=== PATIENT | male | born 1985 | race Hispanic/Latino ===

== ENCOUNTER 2017-02-17 22:29 | Emergency (ER) | payer OTHER ==
[~2017-02-17] VITALS: Ht 177.8 cm; Wt 99.8 kg
[~2017-02-17 22:29] MED LIST: AMOXICILLIN500 MG PO; AUGMENTIN 875 M1 TAB PO; AUGMENTIN 875875 MG PO; CYCLOBENZAPRINE10 M1 PO; IBU800 MG PO; IBUPROFEN800 M1 PO; PERCOCET 325 MG1 TA2 PO
[2017-02-17 23:00] LABS: ABSOLUTE BASOPHIL COUNT 0 /CUMM (0.0-0.2); ABSOLUTE EOSINOPHIL COUNT 0.1 /CUMM (0.0-0.7); ABSOLUTE GRANULOCYTE CT 3.5 /CUMM (1.4-6.5); ABSOLUTE LYMPH COUNT 1.7 /CUMM (1.2-3.4); ABSOLUTE MONOCYTE COUNT 0.6 /CUMM (0.10-0.60); BASOPHIL % 0.4 % (0.0-2.0); EOSINOPHIL % 1.4 % (0-5); GRANULOCYTE % 59.5 % (42.2-75.2); HEMATOCRIT 43.7 % (42-52); MEAN CORPUSCULAR HGB 29.1 PG (27.0-31.0); MEAN CORPUSCULAR HGB CONC 33.7 G/DL (33.0-37.0); MEAN CORPUSCULAR VOLUME 86.4 FL (80.0-94.0); PLATELET COUNT 212 /CUMM (130-400); RBC DISTRIBUTION WIDTH 12.9 % (11.5-14.5); RED BLOOD CELL CT 5.05 /CUMM (4.70-6.10); WHITE BLOOD CELL COUNT 5.9 /CUMM (4.8-10.8)
--- NOTE | 2017-02-18 02:09 | ED SKIN/ALLERGY COMPLAINT ---
History of Present Illness General Chief Complaint: Animal/Insect Bite Stated Complaint: PT HAS SPIDER BITE ON THE LEFT ARM Source: patient, old records, friend Exam Limitations: no limitations Vital Signs & Intake/Output Vital Signs & Intake/Output Vital Signs Date Time Temp Pulse Resp B/P B/P Pulse O2 O2 Flow FiO2 Mean Ox Delivery Rate 02/18 0243 97.1 65 18 141/71 100 Room Air 02/17 2235 98.6 75 18 135/84 98 Room Air ED Intake and Output 02/18 0000 02/17 1200 Intake Total Output Total Balance Patient 220 lb Weight Weight Reported by Patient Measurement Method Allergies Coded Allergies: NO KNOWN ALLERGIES (06/25/16) Reconcile Medications Cyclobenzaprine HCl 10 MG TABLET 1 TAB PO 4XDP PRN PAIN/MUSCLE SPASM Ibuprofen 800 MG TABLET 1 TAB PO 4 TIMES/DAY PRN PAIN Triage Note: PT TO ED C/O INFECTED ?SPIDER BITE TO LEFT UPPER ARM. "I SCRATCHED IT ALL DAY YESTERDAY> LARGE RED, SWOLLEN AREA NOTED Triage Nurses Notes Reviewed? yes Onset: Morning Duration: hour(s):, constant, continues in ED, getting worse Timing: recent history Severity: moderate Location: extremities Possible Factors: insect bite, insect sting Modifying Factors: Improves With: scratching. Associated Symptoms: change in skin texture, rash, swelling/mass/lumps HPI: The morning prior to admission patient felt insect bite to left biceps area that has been itchy with increased redness to the area. There was no fever chills nausea vomiting diarrhea abdominal pain chest pain shortness of breath headache dysuria bleeding. Past History Travel History Traveled to [place] past 21 day No Medical History Any Pertinent Medical History? none Neurological: NONE EENT: NONE Cardiovascular: NONE Respiratory: NONE Gastrointestinal: NONE Hepatic: NONE Renal: NONE Musculoskeletal: NONE Psychiatric: NONE Endocrine: NONE Blood Disorders: NONE Cancer(s): NONE Surgical History Surgical History: none Psychosocial History What is your primary language Yi Tobacco Use: Quit >30 days ago ETOH Use: occasional use Illicit Drug Use: denies illicit drug use Family History Hx Contributory? No Review of Systems Review of Systems Constitutional: Reports: no symptoms. EENTM: Reports: no symptoms. Respiratory: Reports: no symptoms. Cardiovascular: Reports: no symptoms. GI: Reports: no symptoms. Genitourinary: Reports: no symptoms. Musculoskeletal: Reports: no symptoms. Skin: Reports: see HPI, rash. Neurological/Psychological: Reports: no symptoms. Hematologic/Endocrine: Reports: no symptoms. Immunologic/Allergic: Reports: no symptoms. All Other Systems: Reviewed and Negative Physical Exam Physical Exam General Appearance: well developed/nourished, alert, awake, anxious, mild distress Head: atraumatic, normal appearance Eyes: Bilateral: normal appearance, PERRL, EOMI. Ears, Nose, Throat: normal pharynx, normal ENT inspection, hearing grossly normal Neck: normal inspection, supple, full range of motion, no midline tenderness Respiratory: normal breath sounds, chest non-tender, no respiratory distress, quiet respiration, lungs clear Cardiovascular: regular rate/rhythm, normal peripheral pulses, norml femoral pulses equa Peripheral Pulses: 4+ carotid (R), 4+ carotid (L) Gastrointestinal: normal bowel sounds, soft, non-tender, no organomegaly Back: normal inspection, normal range of motion, no vertebral tenderness Extremities: normal capillary refill, normal range of motion, no edema Neurologic/Psych: awake, alert, oriented x 3, normal mood/affect Reflexes: 2+: bicep (R), bicep (L). Skin: intact, rash Skin Problem Location: upper extremities (left biceps) Skin Problem Character: erythema, rash, swelling, thickening Lymphatic: no anterior cervical keke Progress Differential Diagnosis: abscess/cellulitis, allergic reaction, contact dermatitis, urticaria Plan of Care: Orders Procedure Date/time Status COMPREHENSIVE METABOLIC PANEL 02/18 2248 Complete CBC WITHOUT DIFFERENTIAL 02/18 2248 Complete Laboratory Tests 02/17/17 2252: Anion Gap 15, Estimated GFR > 60, BUN/Creatinine Ratio 18.8, Glucose 96, Calcium 9.2, Total Bilirubin 0.7, AST 25, ALT 51, Alkaline Phosphatase 80, Total Protein 7.9, Albumin 4.7, Globulin 3.2, Albumin/Globulin Ratio 1.5, CBC w Diff NO MAN DIFF REQ, RBC 5.05, MCV 86.4, MCH 29.1, RDW 12.9, MPV 8.0, Gran % 59.5, Lymphocytes % 29.4, Monocytes % 9.3, Eosinophils % 1.4, Basophils % 0.4, Absolute Granulocytes 3.5, Absolute Lymphocytes 1.7, Absolute Monocytes 0.6, Absolute Eosinophils 0.1, Absolute Basophils 0, PUBS MCHC 33.7 Departure Departure Time of Disposition: 0308 Disposition: HOME OR SELF CARE Condition: Stable Clinical Impression Primary Impression: Cellulitis of arm, left Referrals: UNKNOWN (PCP/Family) Departure Forms: Customer Survey General Discharge Information Prescriptions: Current Visit Scripts Cephalexin (Keflex) 1 CAP PO TID #30 CAP Diphenhydramine HCl (Benadryl Allergy) 1-2 TAB PO Q6P PRN itchy rash #30 TAB
[2017-02-18 02:43] VITALS: BP 141/71
[2017-02-18] MEDS ORDERED: KEFLEX500 M1 PO (03:09)
[2017-02-18] MEDS ORDERED: BENADRYL ALLERG25 M2 PO (03:09)
== END 2017-02-18 03:20 ==
LOC: ERH 22:29
PROVIDERS: Emergency Medicine
DX: L03.114 Cellulitis of left upper limb (principal)
CPT/HCPCS: J1200